=== PATIENT | female | born 1995 | race Caucasian/White ===

== ENCOUNTER 2017-01-11 21:10 | Emergency (ER) | payer OTHER ==
[2017-01-11 21:23] VITALS: BP 132/77
--- NOTE | 2017-01-11 21:35 | UC ---
Ear Complaint HPI - History of Current Complaint Chief Complaint: UCEar Stated Complaint: EAR ACHE Time Seen by Provider: 01/11/17 21:27 Hx Last Menstrual Period: started 2 weeks ago - Allergies/Home Medications Allergies/Adverse Reactions: Allergies Allergy/AdvReac Type Severity Reaction Status Date / Time No Known Allergies Allergy Verified 01/11/17 21:23 Home Medications: Home Medications Amoxicillin/Clavulanate TAB* [Augmentin TAB 875*] 875 mg PO BID 01/11/17 [ History Confirmed 01/11/17] Ciproflox/Dexameth OTIC.SUSP* [Ciprodex Otic*] 4 drop OTIC BID 01/11/17 [ History Confirmed 01/11/17] Ibuprofen TAB* [Advil TAB*] 400 mg PO ONCE PRN 01/11/17 [History Confirmed 01/11] Levothyroxine TAB* [Synthroid TAB*] 125 mcg PO DAILY 01/11/17 [History Confirmed 01/11/17] PMH/Surg Hx/FS Hx/Imm Hx - Surgical History Surgical History: None - Social History Alcohol Use: None Substance Use Type: None Smoking Status (MU): Never Smoked Tobacco Physical Exam Vital Signs: Initial Vital Signs Temp 98.3 F 01/11/17 21:18 Pulse 70 01/11/17 21:18 Resp 16 01/11/17 21:18 BP 132/77 01/11/17 21:18 Pulse Ox 100 01/11/17 21:18
[2017-01-11] MEDS ORDERED: Acetaminop/Codeine 30 MG TAB* 1 TAB (300 MG/30 MG) PO ONE (22:15)
[2017-01-11] MEDS ORDERED: predniSONE TAB* 20 MG PO ONE (22:15)
[2017-01-11] MEDS ORDERED: cefTRIAXone VIAL(*) 1,000 MG VIAL IM ONE (22:15)
[2017-01-11] MEDS ORDERED: Lidocaine 1%* 5 ML VIAL INJ ONE (22:26)
[2017-01-11] MEDS ORDERED: Lidocaine 1% MPF* 2 ML VIAL ONE (22:30)
[2017-01-11] MEDS ORDERED: Lidocaine 1% MPF* 2 ML VIAL INJ ONE (22:31)
--- NOTE | 2017-02-03 16:07 | UC ---
Bennie Sullivan Nikita, scribed for Jessica Yoo DO on 01/11/17 at 2204 . Ear Complaint HPI - HPI Summary HPI Summary: This patient is a 21 year old F presenting to [facility] with a chief complaint of L ear pain since 10 days ago, when dx with an ear infection. Pt was put on augmentin since then (has one more dose) and took 7 days of ciprodex ear drops. She states that her pain improved for a few days on the antibiotics, but then started to worsen again. The CC is described as aching and the worst pain Radha ever had in my life. The patient rates the pain 10/10 in severity. Symptoms aggravated by nothing. Symptoms alleviated by nothing. Patient reports HDEZ and that she cannot hear out of her L ear. Patient denies ear drainage, fever, chills, CP, abdominal pain, N/V/D, urticaria, sore throat, and SOB. - History of Current Complaint Chief Complaint: UCEar Stated Complaint: EAR ACHE Time Seen by Provider: 01/11/17 21:27 Hx Obtained From: Patient Hx Last Menstrual Period: started 2 weeks ago Onset/Duration: Sudden Onset - 10 days ago, Lasting Days - 10 days ago, Other - dx with ear infection 10 days ago, Rx helped, but pain came back and worsened Severity Initially: Severe Severity Currently: Severe Pain Intensity: 10 Pain Scale Used: 0-10 Numeric Aggravating Factors: Nothing Alleviating Factors: Nothing - Allergies/Home Medications Allergies/Adverse Reactions: Allergies Allergy/AdvReac Type Severity Reaction Status Date / Time No Known Allergies Allergy Verified 01/11/17 21:23 Home Medications: Home Medications Ibuprofen TAB* [Advil TAB*] 400 mg PO ONCE PRN 01/11/17 [History Confirmed 01/11] Levothyroxine TAB* [Synthroid TAB*] 125 mcg PO DAILY 01/11/17 [History Confirmed 01/11/17] PMH/Surg Hx/FS Hx/Imm Hx Other Endocrine History: No DM Other Cardiovascular History: No CAD, HTN - Surgical History Surgical History: None - Family History Known Family History: Negative: Cardiac Disease, Hypertension, Diabetes - Social History Alcohol Use: None Substance Use Type: None Smoking Status (MU): Never Smoked Tobacco Review of Systems Constitutional: Other - No fever, chills Skin: Other - No urticaria ENT: Ear Ache - L ear; Patient reports she cannot hear out of her L ear., Other - No ear drainage, sore throat Respiratory: Other - No SOB, cough Cardiovascular: Other - No CP Gastrointestinal: Other - No abdominal pain, N/V/D All Other Systems Reviewed And Are Negative: Yes Physical Exam Triage Information Reviewed: Yes Appearance: Well-Appearing, Well-Nourished, Pain Distress - Mild Vital Signs: Initial Vital Signs Temp 98.3 F 01/11/17 21:18 Pulse 70 01/11/17 21:18 Resp 16 01/11/17 21:18 BP 132/77 01/11/17 21:18 Pulse Ox 100 01/11/17 21:18 Vital Signs Reviewed: Yes Eyes: Positive: Conjunctiva Clear. Negative: Discharge ENT: Positive: Other: - Left TM is grossly abnormal; eardrum looks completely white, flat, but seemingly opaque; canal is normal, tender lymphadenopathy on L ear. Negative: Tonsillar swelling, Tonsillar exudate, Trismus, Muffled/hoarse voice Neck exam: Normal Neck: Positive: Supple Respiratory: Positive: Lungs clear, Normal breath sounds, No respiratory distress, No accessory muscle use Cardiovascular: Positive: RRR, No Murmur Musculoskeletal Exam: Normal Neurological: Positive: Alert, Muscle Tone Normal Psychological Exam: Normal Psychological: Positive: Age Appropriate Behavior Skin Exam: Normal, Other - Warm, Dry, Normal color Ear Complaint Course/Dx - Course Course Of Treatment: This patient is a 21 year old F presenting to [facility] with a chief complaint of L ear pain since 10 days ago, when dx with an ear infection. Pt was put on augmentin since then (has one more dose) and took 7 days of ciprodex ear drops. She states that her pain improved for a few days on the antibiotics, but then started to worsen again. The CC is described as aching and the worst pain Radha ever had in my life. The patient rates the pain 10/10 in severity. Symptoms aggravated by nothing. Symptoms alleviated by nothing. Patient reports HDEZ and that she cannot hear out of her L ear. Patient denies ear drainage, fever, chills, CP, abdominal pain, N/V/D, urticaria, sore throat, cough, and SOB. Medications reviewed this visit. Pt will be discharged AMA. Pt is agreeable with this plan. - Differential Dx/Diagnosis Provider Diagnoses: Otitis Media Discharge - Discharge Plan Condition: Stable Disposition: AGAINST MEDICAL ADVICE Prescriptions: Acetaminop/Codeine 30 MG TAB* [Tylenol/Codeine 30 MG TAB*] 1 tab PO Q6H PRN #10 tab MDD 4 tabs PRN Reason: Pain Cefdinir [Cefdinir 300 MG CAP] 300 mg PO BID #20 cap predniSONE TAB* [Deltasone TAB*] 40 mg PO DAILY #8 tab Patient Education Materials: Otitis Media (ED) Referrals: [facility] [Outside] - 3 Days Silver Phelps MD [Medical Doctor] - 1 Day Additional Instructions: CEPHALOSPORINS: An antibiotic of the cephalosporin class has been prescribed. This type of antibiotic covers a wide variety of infections, including those of the skin, lungs, middle ear, and urinary tract. This antibiotic is somewhat similar to the penicillin family. In rare cases , a person who is allergic to penicillin will also be allergic to this medication. If you have had a severe allergic reaction to penicillin, and have not taken this antibiotic since that time, notify your doctor. Antibiotics which cover many germs ("broad spectrum" antibiotics) are more likely to cause diarrhea or "yeast" infections. Women prone to vaginal yeast problems may suffer an attack after taking this antibiotic. In infants, oral thrush (white spots "stuck" on the cheek) or yeast diaper rash may result. See your doctor if these problems occur. Call the doctor at once if you develop hives, itching, shortness of breath , or lightheadedness. ANYTIME YOU TAKE AN ANTIBIOTIC, IT IS IMPORTANT TO REPLENISH THE BODY'S SUPPLY OF "GOOD BACTERIA." YOU CAN GET GOOD BACTERIA FROM HIGH QUALITY CULTURED FOODS SUCH LOCAL YOGURT, SOUR KRAUT, ARIEL GERRY, NATURALLY FERMENTED PICKLES AND PROBIOTIC DRINKS. YOU CAN ALSO GET GOOD BACTERIA FROM A PROBIOTIC SUPPLEMENT. CORTICOSTEROID MEDICATION: You have been given a medicine of the cortisone class. This medication is used to control inflammation or allergy. It is usually only given for a short period of time, until the acute process subsides. There are usually no side effects from short-term use of cortisone-like medications. Some persons feel an increased sense of well-being and are not sleepy at bedtime. Long-term use of cortisone medications is best avoided, unless required for a severe condition. If your condition does not remit, or relapses after the course of corticosteroid medication, you should consult your physician. Contact the physician if you develop lightheadedness, black or tarry stools , swelling of the legs, or significant rapid change in weight. ACETAMINOPHEN WITH CODEINE: You have been given a prescription for acetaminophen with codeine for pain control. Codeine is a narcotic. It is best taken with food, as nausea can result if taken on an empty stomach. Don't operate machinery or drive within six hours of taking this medication. Do not combine this medication with alcohol, or with any sedative type medicine such as cold tablets or sleeping pills unless your doctor gives permission. Narcotics tend to cause constipation. It's best to get plenty of fluids, fiber, and fruits. WE ARE NOT SURE WHAT IS CAUSING YOUR EAR PAIN. RIGHT NOW WE ARE TREATING AN INFECTION. HOWEVER, WE THINK IT IS IMPORTANT THAT YOU BE SEEN BY AN EAR, NOSE THROAT SPECIALIST SOON POSSIBLE. The documentation as recorded by the Bennie burns Nikita accurately reflects the service I personally performed and the decisions made by me, Jessica Yoo DO.
== END 2017-01-11 22:55 | disposition left against medical advice (07) ==
LOC: UCEAST 21:10
DX: H66.92 Otitis media, unspecified, left ear (principal)
CPT/HCPCS: 99203; A9270-GY; G0463; J0696; J7512

== ENCOUNTER 2017-07-28 23:15 | Emergency (ER) | payer OTHER ==
[2017-07-29 00:22] LABS: ABS Basophils 0.1 10^3/ul (0-0.2); ABS Eosinophils 0.2 10^3/ul (0-0.6); ABS Lymphocytes 3.9 10^3/ul (1.0-4.8); ABS Monocytes 0.8 10^3/ul (0-0.8); ABS Neutrophils 10.3 10^3/ul (1.5-7.7); ABS Nucleated RBC 0 10^3/ul; Eosinophil % 1.4 % (0-6); Hematocrit 42 % (35-47); Hemoglobin 13.8 g/dl (12.0-16.0); Lymphocyte % 25.5 % (25-47); Mean Corpuscular HGB Conc 33 g/dl (31-36); Mean Corpuscular Hemoglobin 27 pg (27-31); Mean Corpuscular Volume 82 fL (80-97); Mean Platelet Volume 7.9 um3 (7.4-10.4); Nucleated Red Blood Cells % 0.1; Platelet Count 342 10^3/ul (150-450); Red Cell Distribution Width 13 % (10.5-15); White Blood Count 15.4 10^3/ul (3.5-10.8)
[2017-07-29 00:42] LABS: EGFR Non-African American 92.4 (>60)
[2017-07-29 01:29] LABS: Urine Appearance Clear; Urine Blood Negative (Negative); Urine Color Yellow; Urine Ketones Negative (Negative); Urine Protein Negative (Negative); Urine Specific Gravity 1.014 (1.010-1.030); Urine Urobilinogen Negative (Negative)
--- NOTE | 2017-07-29 04:00 | ED ---
Kerry Sullivan Gabriel, scribchaya for Álvaro Nunn MD on 07/28/17 at 2356 . Psychiatric Complaint - HPI Summary HPI Summary: This patient is a 21 year old F BIBA to [facility] from [facility] with a chief complaint of SI that began tonight. The patient rates the pain 3/10 in severity. Patient reports increased depression and having a panic attack. Patient denies plan. Pt is not on medication. Hx of SI. - History Of Current Complaint Chief Complaint: EDMentalHealth Time Seen by Provider: 07/28/17 23:47 Hx Obtained From: Patient Hx Last Menstrual Period: started 2 weeks ago Onset/Duration: Still Present Timing: Constant Severity Initially: Moderate Severity Currently: Moderate Character: Depressed Related History: Positive For: Prior Psychiatric Issues Has Suicidal: Reports: Thoughts. Denies: With A Plan - Allergies/Home Medications Allergies/Adverse Reactions: Allergies Allergy/AdvReac Type Severity Reaction Status Date / Time No Known Allergies Allergy Verified 01/11/17 21:23 PMH/Surg Hx/FS Hx/Imm Hx Endocrine/Hematology History: Reports: Hx Thyroid Disease Respiratory History: Reports: Hx Asthma Psychiatric History: Reports: Hx Anxiety, Hx Depression, Hx Panic Disorder Denies: Hx Suicide Attempt Infectious Disease History: No Infectious Disease History: Denies: Traveled Outside the [place] in Last 30 Days - Family History Known Family History: Negative: Cardiac Disease, Hypertension, Diabetes - Social History Alcohol Use: None Substance Use Type: Reports: None Smoking Status (MU): Never Smoked Tobacco Review of Systems Negative: Fever Psychological: Other - panic attack Positive: Depressed, Other - SI All Other Systems Reviewed And Are Negative: Yes Physical Exam - Summary Physical Exam Summary: VITAL SIGNS: Reviewed. GENERAL: Patient is a well-developed and nourished female who is lying comfortable in the stretcher. Patient is not in any acute respiratory distress. HEAD AND FACE: No signs of trauma. No ecchymosis, hematomas or skull depressions. No sinus tenderness. EYES: PERRLA, EOMI x 2, No injected conjunctiva, no nystagmus. EARS: Hearing grossly intact. Ear canals and tympanic membranes are within normal limits. MOUTH: Oropharynx within normal limits. NECK: Supple, trachea is midline, no adenopathy, no JVD, no carotid bruit, no c- spine tenderness, neck with full ROM. CHEST: Symmetric, no tenderness at palpation LUNGS: Clear to auscultation bilaterally. No wheezing or crackles. CVS: Regular rate and rhythm, S1 and S2 present, no murmurs or gallops appreciated. ABDOMEN: Soft, non-tender. No signs of distention. No rebound no guarding, and no masses palpated. Bowel sounds are normal. EXTREMITIES: FROM in all major joints, no edema, no cyanosis or clubbing. NEURO: Alert and oriented x 3. No acute neurological deficits. Speech is normal and follows commands. SKIN: Dry and warm Triage Information Reviewed: Yes Vital Signs On Initial Exam: Initial Vitals Temp Pulse Resp BP Pulse Ox 98.3 F 81 13 131/82 97 07/28/17 23:20 07/28/17 23:20 07/28/17 23:20 07/28/17 23:20 07/28/17 23:20 Vital Signs Reviewed: Yes Diagnostics - Vital Signs Vital Signs Temp Pulse Resp BP Pulse Ox 07/28/17 23:20 98.3 F 81 13 131/82 97 - Laboratory Result Diagrams: 07/29/17 00:07 07/29/17 00:07 Lab Statement: Any lab studies that have been ordered have been reviewed, and results considered in the medical decision making process. Course/Dx - Course Assessment/Plan: A MHE was performed by Dr. Sanford and the patient was deemed stable to be discharged home with dx of depression - Differential Dx/Clinical Impression Provider Diagnosis: Depression Discharge - Sign-Out/Discharge Documenting (check all that apply): Discharge - Discharge Plan Condition: Stable Disposition: HOME Referrals: No Primary Care Phys,NOPCP [Primary Care Provider] - The documentation as recorded by the Kerry burns Gabriel accurately reflects the service I personally performed and the decisions made by , Álvaro Nunn MD.
[2017-07-29 04:09] VITALS: BP 116/68
== END 2017-07-29 04:08 | disposition home or self-care (01) ==
LOC: ED 23:15
DX: F32.9 Major depressive disorder, single episode, unspecified (principal); R45.851 Suicidal ideations
CPT/HCPCS: 36415; 80053; 80307; 80320; 80329; 81003; 81015; 84443; 84702; 85025; 87086; 99284; G0480

== ENCOUNTER 2019-01-21 11:42 | Emergency (ER) | payer OTHER ==
[2019-01-21 11:56] VITALS: BP 125/74
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
== END 2019-01-21 12:54 | disposition home or self-care (01) ==
LOC: UCEAST 11:42
DX: S63.601A Unspecified sprain of right thumb, initial encounter (principal); X50.0XXA Overexertion from strenuous movement or load, initial encounter; Y93.89 Activity, other specified; Y92.9 Unspecified place or not applicable
CPT/HCPCS: 99212; G0463

== ENCOUNTER 2019-02-12 14:03 | Emergency (ER) | payer OTHER ==
[2019-02-12] MEDS ORDERED: Ibuprofen TAB* 800 MG PO ONE (17:44)
--- NOTE | 2019-02-12 17:47 | ED ---
Lower Extremity - HPI Summary HPI Summary: 23-year-old female presents with right ankle injury today. She states she ended up tripping falling and landing on her knee. She admits to right ankle and knee pain. no loss consciousness or head injury. No other injury. Denies any previous fractures to the area. No numbness tingling. States she was not able to place weight on the area. Has no medical conditions. - History of Current Complaint Chief Complaint: EDFall Stated Complaint: FALL PER EMS Time Seen by Provider: 02/12/19 17:31 Hx Last Menstrual Period: ended yesterday 01/20/19 Pain Intensity: 8 - Allergies/Home Medications Allergies/Adverse Reactions: Allergies Allergy/AdvReac Type Severity Reaction Status Date / Time No Known Allergies Allergy Verified 02/12/19 18:19 PMH/Surg Hx/FS Hx/Imm Hx Endocrine/Hematology History: Reports: Hx Thyroid Disease Denies: Hx Anticoagulant Therapy Respiratory History: Reports: Hx Asthma Psychiatric History: Reports: Hx Anxiety, Hx Depression, Hx Panic Disorder Denies: Hx Eating Disorder, Hx Suicide Attempt Infectious Disease History: No Infectious Disease History: Denies: Traveled Outside the [place] in Last 30 Days - Family History Known Family History: Positive: Non-Contributory Negative: Cardiac Disease, Hypertension, Diabetes - Social History Alcohol Use: None Substance Use Type: Reports: None Smoking Status (MU): Never Smoked Tobacco Review of Systems Negative: Fever Negative: Chest Pain Negative: Shortness Of Breath Positive: Myalgia - right knee and ankle pain All Other Systems Reviewed And Are Negative: Yes Physical Exam Triage Information Reviewed: Yes Vital Signs On Initial Exam: Initial Vitals Temp Pulse Resp BP Pulse Ox 98.2 F 88 19 128/75 98 02/12/19 14:12 02/12/19 14:12 02/12/19 14:12 02/12/19 14:12 02/12/19 14:12 Vital Signs Reviewed: Yes Appearance: Positive: Well-Appearing Skin: Positive: Warm, Dry Head/Face: Positive: Normal Head/Face Inspection Eyes: Positive: Normal, Conjunctiva Clear ENT: Positive: Pharynx normal Respiratory/Lung Sounds: Positive: Clear to Auscultation, Breath Sounds Present Cardiovascular: Positive: Normal, RRR Musculoskeletal: Positive: Limited @ - right ankle, Other - tenderness lateral malleolus right ankle and tenderness right knee, good pulses, sensation grossly intact Neurological: Positive: Normal Psychiatric: Positive: Normal Procedures - Sedation Patient Received Moderate/Deep Sedation with Procedure: No Diagnostics - Vital Signs Vital Signs Temp Pulse Resp BP Pulse Ox 02/12/19 16:16 97.4 F 78 16 109/72 99 02/12/19 14:12 98.2 F 88 19 128/75 98 - Laboratory Lab Statement: Any lab studies that have been ordered have been reviewed, and results considered in the medical decision making process. - Radiology ankle, foot Radiology Interpretation Completed By: Radiologist Summary of Radiographic Findings: IMPRESSION: NO ACUTE OSSEOUS INJURY. IF SYMPTOMS PERSIST, RECOMMEND REPEAT IMAGING. knee Radiology Interpretation Completed By: ED Physician Summary of Radiographic Findings: no fracture Lower Extremity Course/Dx - Course Course Of Treatment: 23-year-old female presents with right ankle injury today. She states she ended up tripping falling and landing on her knee. She admits to right ankle and knee pain. no loss consciousness or head injury. No other injury. Denies any previous fractures to the area. No numbness tingling. States she was not able to place weight on the area. Has no medical conditions. On exam tenderness of lateral malleolus of right ankle and right knee. Neurovascular intact. X-ray shows no fracture. Gave crutches and gel splint. told follow up with orthopedic if no improvement. Patient understands and agrees with plan. - Diagnoses Differential Diagnosis/HQI/PQRI: Positive: Fracture (Closed), Sprain, Strain Provider Diagnoses: Right ankle injury Discharge ED - Sign-Out/Discharge Documenting (check all that apply): Patient Departure - Discharge Plan Condition: Good Disposition: HOME Patient Education Materials: Ankle Sprain (ED) Referrals: Godwin Smith MD [Medical Doctor] - Additional Instructions: Stay off ankle as much as possible Ice, elevate Ibuprofen or tyenlol every 6 hours for pain Follow up with ortho if no improvement Return to ED if develop or any new or worsening symptoms - Billing Disposition and Condition Condition: GOOD Disposition: Home - Attestation Statements Provider Attestation: I was available for consult. This patient was seen by the CARLITOS. The patient was not presented to, seen by, or examined by me. Raz Krishnan MD
[2019-02-12 19:16] VITALS: BP 125/80
== END 2019-02-12 19:06 | disposition home or self-care (01) ==
LOC: ED 14:03
DX: S99.911A Unspecified injury of right ankle, initial encounter (principal); W01.0XXA Fall on same level from slipping, tripping and stumbling without subsequent striking against object, initial encounter; Y92.9 Unspecified place or not applicable
CPT/HCPCS: 99282; A9270-GY